=== PATIENT | female | born 1985 ===

== ENCOUNTER 2017-08-28 10:57 | Emergency (ER) | payer SELFPAY ==
[2017-08-28 10:57] VITALS: BMI 25.3
[2017-08-28 11:10] VITALS: BP 123/76; PULSE 96; RESP 16; O2SAT 98
[2017-08-28 11:23] VITALS: TEMP 98
--- NOTE | 2017-08-28 11:46 | ED PDOC ---
HPI: CCC, URI, Sore Throat Time Seen by Provider: 08/28/17 11:01 Chief Complaint (Nursing): Cough, Cold, Congestion Chief Complaint (Provider): URI History Per: Patient Additional Complaint(s): 32 yo female, no PMH, presents with cough, congestion, runny nose, tactile fever , and sinus pressure. Symptoms started on wednesday and feels worse today. Patient took motrin yesterday with no relief. Past Medical History Reviewed: Nursing Documentation, Vital Signs Vital Signs: Last Vital Signs Temp 98 F 08/28/17 11:16 Pulse 96 H 08/28/17 11:16 Resp 16 08/28/17 11:16 BP 123/76 08/28/17 11:16 Pulse Ox 98 08/28/17 11:46 - Medical History PMH: No Chronic Diseases Denies: Chronic Kidney Disease - Surgical History Surgical History: No Surg Hx - Family History Family History: States: No Known Family Hx - Living Arrangements Living Arrangements: With Family - Social History Current smoker - smoking cessation education provided: No Alcohol: None Drugs: Denies - Home Medications Home Medications: Ambulatory Orders Medication Instructions Recorded Naproxen [Naprosyn] 500 mg PO PRN PRN 05/12/16 Methylprednisolone [Medrol Dose 4 mg PO DAILY #21 mg 08/28/17 Pack (21 tabs)] Promethazine HCl/Codeine 5 ml PO HS #80 ml 08/28/17 [Prometh-Codein 6.25-10 mg/5 ml] - Allergies Allergies/Adverse Reactions: Allergies Allergy/AdvReac Type Severity Reaction Status Date / Time tetracycline Allergy RASH Verified 08/28/17 11:20 Review of Systems ROS Statement: Except As Marked, All Systems Reviewed And Found Negative Constitutional: Positive for: Fever ENT: Positive for: Nose Congestion, Throat Pain Respiratory: Positive for: Cough Physical Exam - Reviewed Nursing Documentation Reviewed: Yes Vital Signs Reviewed: Yes - Physical Exam Appears: Positive for: Well, Non-toxic, No Acute Distress Head Exam: Positive for: ATRAUMATIC, NORMAL INSPECTION, NORMOCEPHALIC Skin: Positive for: Normal Color, Warm, DRY Eye Exam: Positive for: EOMI, Normal appearance, PERRL ENT: Positive for: TM Is/Are (WNL), Pharyngeal Erythema. Negative for: Tonsillar Exudate, Tonsillar Swelling Neck: Positive for: Normal, Painless ROM Cardiovascular/Chest: Positive for: Regular Rate, Rhythm Respiratory: Positive for: CNT, Normal Breath Sounds Gastrointestinal/Abdominal: Positive for: Normal Exam, Bowel Sounds, Soft Back: Positive for: Normal Inspection Extremity: Positive for: Normal ROM Neurologic/Psych: Positive for: Alert, Oriented - ECG O2 Sat by Pulse Oximetry: 98 Medical Decision Making Medical Decision Making: CXR: NAD, as read by GIRISH Flu and Strep (-) Pt educated on results and demonstrated full understanding Supportive care measures discussed. Disposition - Clinical Impression Clinical Impression: Upper respiratory infection - Patient ED Disposition Is Patient to be Admitted: No - Disposition Disposition: Routine/Home Disposition Time: 12:48 Condition: STABLE Prescriptions: Methylprednisolone [Medrol Dose Pack (21 tabs)] 4 mg PO DAILY #21 mg Promethazine HCl/Codeine [Prometh-Codein 6.25-10 mg/5 ml] 5 ml PO HS #80 ml Instructions: Upper Respiratory Infection (ED) Forms: [facility] ([place])
--- NOTE | 2017-08-28 12:47 | RAD ---
HISTORY: Fever and cough. COMPARISON: No prior. TECHNIQUE: Chest PA and lateral FINDINGS: LUNGS: No acute infiltrates. There is a vague approximately 3.77 mm rounded radiopaque left lateral mid to lower lung field located between the left anterior 4th and 5th ribs near the pleural surface that may represent a small calcified granuloma. Followup nonemergent CT scan of the chest could be performed confirm PLEURA: No significant pleural effusion identified. No pneumothorax apparent. CARDIOVASCULAR: Normal. OSSEOUS STRUCTURES: No significant abnormalities. VISUALIZED UPPER ABDOMEN: Normal. OTHER FINDINGS: None. IMPRESSION: No acute infiltrates. There is a vague approximately 3.77 mm rounded radiopaque left lateral mid to lower lung field located between the left anterior 4th and 5th ribs near the pleural surface that may represent a small calcified granuloma. Followup nonemergent CT scan of the chest could be performed confirm and exclude other pathology
== END 2017-08-28 13:30 | disposition home or self-care (01) ==
LOC: H.ER 10:57
DX: J06.9 Acute upper respiratory infection, unspecified (principal)

== ENCOUNTER 2017-08-29 21:37 | Emergency (ER) | payer SELFPAY ==
[2017-08-29 21:38] VITALS: BMI 25.3
[2017-08-29 21:56] VITALS: BP 145/79
[2017-08-29] MEDS ORDERED: Sodium Chloride 0.9% 1,000 ML IV STA (22:16)
[2017-08-29 22:49] LABS: BASO % 0.2 % (0.0-2.0); EOS % 0.1 % (0.0-4.0); HEMOGLOBIN 11.1 g/dL (12.0-16.0); LYMPH # 0.8 K/uL (1.0-4.3); LYMPH % 12.3 % (20.0-40.0); MEAN CELL VOLUME 81.6 fl (81.0-99.0); MEAN CORPUSCULAR HEMOGLOBIN 26.9 pg (27.0-31.0); MEAN CORPUSCULAR HGB CONC 32.9 g/dL (33.0-37.0); MEAN PLATELET VOLUME 8.5 fl (7.2-11.7); MONO # 0.5 K/uL (0.0-0.8); MONO % 7.4 % (0.0-10.0); NEUT # 5.3 K/uL (1.8-7.0); NRBC % 0.2 % (0.0-0.0); RBC 4.15 Mil/uL (3.80-5.20); RED CELL DISTRIBUTION WIDTH 14.6 % (11.5-14.5); WHITE BLOOD COUNT 6.6 K/uL (4.8-10.8)
[2017-08-29 23:02] LABS: ALB/GLOB RATIO 1.2 (1.0-2.1); ALBUMIN 4.3 g/dL (3.5-5.0); ALT/SGPT 24 U/L (9-52); AST/SGOT 25 U/L (14-36); BLOOD UREA NITROGEN 7 mg/dl (7-17); CALCIUM 9.6 mg/dL (8.4-10.2); GFR AFRICAN-AMERICAN > 60; GFR NON-AFRICAN AMERICAN > 60
--- NOTE | 2017-08-30 00:28 | ED PDOC ---
HPI: General Adult Time Seen by Provider: 08/29/17 22:10 Chief Complaint (Nursing): Palpitations Chief Complaint (Provider): Palpitations, SOB History Per: Patient History/Exam Limitations: no limitations Onset/Duration Of Symptoms: Mins Have you had recent travel within the past 21 days to any of the following countries: [place], [place], [place] or [place]?: No Current Symptoms Are (Timing): Still Present Additional Complaint(s): 32 yo female with no medical problems presents with palpitations and SOB. PT was see in ER 2 days ago and diagnosed with bronchitis. Pt began taking prednisone this morning. Pt states she has never felt this way before. Pt reports some improvement on arrival to room. Past Medical History Reviewed: Historical Data, Nursing Documentation, Vital Signs Vital Signs: Last Vital Signs Temp 98.6 F 08/29/17 21:51 Pulse 102 H 08/29/17 22:18 Resp 20 08/29/17 21:51 BP 145/79 08/29/17 21:51 Pulse Ox 99 08/30/17 00:29 - Medical History PMH: No Chronic Diseases Denies: Chronic Kidney Disease - Surgical History Surgical History: No Surg Hx - Family History Family History: States: No Known Family Hx - Living Arrangements Living Arrangements: With Family - Social History Current smoker - smoking cessation education provided: No - Home Medications Home Medications: Ambulatory Orders Medication Instructions Recorded Naproxen [Naprosyn] 500 mg PO PRN PRN 05/12/16 Methylprednisolone [Medrol Dose 4 mg PO DAILY #21 mg 08/28/17 Pack (21 tabs)] Promethazine HCl/Codeine 5 ml PO HS #80 ml 08/28/17 [Prometh-Codein 6.25-10 mg/5 ml] - Allergies Allergies/Adverse Reactions: Allergies Allergy/AdvReac Type Severity Reaction Status Date / Time tetracycline Allergy RASH Verified 08/28/17 11:20 Review of Systems ROS Statement: Except As Marked, All Systems Reviewed And Found Negative Constitutional: Negative for: Fever, Chills Cardiovascular: Positive for: Palpitations. Negative for: Chest Pain Respiratory: Positive for: Shortness of Breath. Negative for: Cough Physical Exam - Reviewed Nursing Documentation Reviewed: Yes Vital Signs Reviewed: Yes - Physical Exam Appears: Positive for: Well, Non-toxic, No Acute Distress Head Exam: Positive for: ATRAUMATIC, NORMAL INSPECTION, NORMOCEPHALIC Skin: Positive for: Normal Color, Warm, DRY Eye Exam: Positive for: Normal appearance ENT: Positive for: Normal ENT Inspection Neck: Positive for: Normal, Painless ROM Cardiovascular/Chest: Positive for: Regular Rate, Rhythm Respiratory: Positive for: Normal Breath Sounds. Negative for: Accessory Muscle Use, Respiratory Distress Back: Positive for: Normal Inspection Extremity: Positive for: Normal ROM. Negative for: Tenderness Neurologic/Psych: Positive for: Alert, Oriented - Laboratory Results Result Diagrams: 08/29/17 22:45 08/29/17 22:45 - ECG O2 Sat by Pulse Oximetry: 99 Medical Decision Making Medical Decision Making: Labs normal with the exception of DDimer which is elevated. CT (-) Case discussed with Dr. Jefferson. Disposition - Clinical Impression Clinical Impression: Palpitations - Patient ED Disposition Is Patient to be Admitted: No Counseled Patient/Family Regarding: Diagnosis, Need For Followup - Disposition Referrals: Orlando Eng MD [Staff Provider] - Disposition: Routine/Home Disposition Time: 02:32 Condition: STABLE Additional Instructions: Please follow-up with purchasing manager/sales. Instructions: Palpitations (ED) Forms: [employer] (Latvian) Print Language: SOMALI
[2017-08-30] MEDS ORDERED: Iodixanol 320 MG/ML 100 ML BOTTLE IV ONE (01:06)
[2017-08-30] MEDS ORDERED: Sodium Chloride 0.9% 50 ML IV ONE (01:06)
--- NOTE | 2017-08-30 02:08 | CT ---
EXAM: CT Angiography Chest With Intravenous Contrast CLINICAL HISTORY: 32 years old, female; Signs and symptoms; Shortness of breath; Additional info: Tachycardia, SOB TECHNIQUE: Axial computed tomographic angiography images of the chest with intravenous contrast using pulmonary embolism protocol. All CT scans at this facility use one or more dose reduction techniques, viz.: automated exposure control; ma/kV adjustment per patient size (including targeted exams where dose is matched to indication; i.e. head); or iterative reconstruction technique. MIP reconstructed images were created and reviewed. Coronal and sagittal reformatted images were created and reviewed. CONTRAST: 90 mL of [id number] administered intravenously. COMPARISON: CT - CHEST W/O CONTRAST 2015-11-29 09:02 FINDINGS: Pulmonary arteries: No pulmonary embolism. Aorta: No aneurysm. No dissection. Lungs: No consolidation. Several pulmonary nodules, up to 0.6 cm, stable. Pleural space: No significant effusion. No pneumothorax. Heart: No cardiomegaly. No significant pericardial effusion. Bones/joints: No acute fracture. Soft tissues: Unremarkable. Lymph nodes: No pathologically enlarged lymph nodes. IMPRESSION: 1. No CT evidence of pulmonary embolism. 2. Pulmonary nodules, stable.
[2017-08-30 02:31] VITALS: PULSE 108; RESP 16; TEMP 98.3
[2017-08-30 02:33] VITALS: O2SAT 99
--- NOTE | 2017-08-30 13:36 | CARD ---
APPROVED REPORT EKG Measurement Heart [id number] <Conclusion> Sinus tachycardia Non-specific ST-T changes Abnormal ECG
== END 2017-08-30 02:40 | disposition home or self-care (01) ==
LOC: H.ER 21:37
DX: R00.2 Palpitations (principal); R06.02 Shortness of breath
CPT/HCPCS: 71275; 80053; 81025; 84443; 85025; 85378; 93005; 96360; 99283; J7040; Q9967

== ENCOUNTER 2017-12-27 06:45 | Observation (INO) | payer OTHER, SELFPAY ==
[2017-12-27 06:45] VITALS: BMI 25.3
--- NOTE | 2017-12-27 07:35 | ED PDOC ---
HPI: General Adult Time Seen by Provider: 12/27/17 07:08 Chief Complaint (Nursing): Palpitations Chief Complaint (Provider): Palpitations History Per: Patient History/Exam Limitations: no limitations Onset/Duration Of Symptoms: Days (x 3) Current Symptoms Are (Timing): Still Present Recently: Treated By A Physician Additional Complaint(s): 32-year-old female presents to ED complaining of palpitations x 3 days intermittent associated with episodes of chest pain and dizziness. (-) shortness of breath. Pt states she had similar symptoms in past. Seen by PMD with work up inconclusive. PMD: Prashanth Panchal Past Medical History Reviewed: Historical Data, Nursing Documentation, Vital Signs Vital Signs: Last Vital Signs Temp 97.8 F 12/27/17 06:56 Pulse 95 H 12/27/17 08:50 Resp 16 12/27/17 06:56 BP 127/78 12/27/17 06:56 Pulse Ox 98 12/27/17 08:50 - Medical History PMH: No Chronic Diseases Denies: Chronic Kidney Disease - Surgical History Surgical History: No Surg Hx - Family History Family History: States: Unknown Family Hx - Home Medications Home Medications: Ambulatory Orders Medication Instructions Recorded Naproxen [Naprosyn] 500 mg PO PRN PRN 05/12/16 Methylprednisolone [Medrol Dose 4 mg PO DAILY #21 mg 08/28/17 Pack (21 tabs)] Promethazine HCl/Codeine 5 ml PO HS #80 ml 08/28/17 [Prometh-Codein 6.25-10 mg/5 ml] Non-Formulary 1 ea .ROUTE Q6 #1 ea 12/27/17 Non-Formulary 1 ea .ROUTE Q6 #1 ea 12/27/17 - Allergies Allergies/Adverse Reactions: Allergies Allergy/AdvReac Type Severity Reaction Status Date / Time tetracycline Allergy RASH Verified 08/28/17 11:20 Review of Systems ROS Statement: Except As Marked, All Systems Reviewed And Found Negative Cardiovascular: Positive for: Palpitations Respiratory: Negative for: Shortness of Breath Neurological: Positive for: Dizziness Physical Exam - Reviewed Nursing Documentation Reviewed: Yes Vital Signs Reviewed: Yes - Physical Exam Cardiovascular/Chest: Positive for: Regular Rate, Rhythm. Negative for: Murmur Respiratory: Positive for: Normal Breath Sounds (Lungs clear b/l) Gastrointestinal/Abdominal: Positive for: Normal Exam, Soft. Negative for: Tenderness Extremity: Negative for: Calf Tenderness, Swelling Neurologic/Psych: Positive for: Alert, Oriented (x 3). Negative for: Motor/ Sensory Deficits - Laboratory Results Result Diagrams: 12/27/17 07:50 12/27/17 07:50 - ECG ECG: Positive for: Interpreted By Me, Viewed By Me ECG Rhythm: Positive for: Sinus Rhythm (Normal). Negative for: ST/T Changes Rate: 95 O2 Sat by Pulse Oximetry: 98 (RA) Pulse Ox Interpretation: Normal Medical Decision Making Medical Decision Making: Time: 07:29 Plan: - EKG - cmp - drug screen, urine - t4 - tsh - troponin I - ed urine - cbc (with differentials) - d-dimer - CXR Time: 07:51 - Urine Culture Scribe Attestation: Documented by Archie Maldonado, acting as a scribe for Keith Fitch MD. Provider Scribe Attestation: All medical record entries made by the Scribe were at my direction and personally dictated by me. I have reviewed the chart and agree that the record accurately reflects my personal performance of the history, physical exam, medical decision making, and the department course for this patient. I have also personally directed, reviewed, and agree with the discharge instructions and disposition. Disposition - Clinical Impression Clinical Impression: Palpitations - Patient ED Disposition Is Patient to be Admitted: No Counseled Patient/Family Regarding: Studies Performed, Diagnosis, Need For Followup, Rx Given - Disposition Referrals: [facility] [Outside] Disposition: Routine/Home Disposition Time: 08:32 Condition: FAIR Prescriptions: Non-Formulary 1 ea .ROUTE Q6 #1 ea Non-Formulary 1 ea .ROUTE Q6 #1 ea Instructions: Palpitations Forms: [employer] (Nepali)
[2017-12-27 07:55] LABS: BASO # 0.1 K/uL (0.0-0.2); BASO % 0.9 % (0.0-2.0); EOS # 0.1 K/uL (0.0-0.7); EOS % 1.1 % (0.0-4.0); HEMOGLOBIN 12.2 g/dL (12.0-16.0); LYMPH # 1.4 K/uL (1.0-4.3); LYMPH % 23.7 % (20.0-40.0); MEAN CELL VOLUME 83.9 fl (81.0-99.0); MEAN CORPUSCULAR HEMOGLOBIN 27.7 pg (27.0-31.0); MEAN CORPUSCULAR HGB CONC 33.1 g/dL (33.0-37.0); MEAN PLATELET VOLUME 7.6 fl (7.2-11.7); MONO # 0.4 K/uL (0.0-0.8); MONO % 7.1 % (0.0-10.0); NEUT % 67.2 % (50.0-75.0); NRBC % 0.1 % (0.0-0.0); RBC 4.41 Mil/uL (3.80-5.20); RED CELL DISTRIBUTION WIDTH 13.1 % (11.5-14.5); WHITE BLOOD COUNT 5.9 K/uL (4.8-10.8)
[2017-12-27 08:17] LABS: ALB/GLOB RATIO 1.2 (1.0-2.1); ALBUMIN 4.3 g/dL (3.5-5.0); ALT/SGPT 35 U/L (9-52); AST/SGOT 25 U/L (14-36); BLOOD UREA NITROGEN 9 mg/dl (7-17); CALCIUM 9.4 mg/dL (8.4-10.2); GFR AFRICAN-AMERICAN > 60; GFR NON-AFRICAN AMERICAN > 60
[2017-12-27 08:30] LABS: T4 7.55 ug/dl (5.5-11.0)
--- NOTE | 2017-12-27 09:30 | RAD ---
HISTORY: palpitations COMPARISON: Chest radiographs 08/28/2017. TECHNIQUE: Chest PA and lateral FINDINGS: LUNGS: No active pulmonary disease. PLEURA: No significant pleural effusion identified. No pneumothorax apparent. CARDIOVASCULAR: Normal. OSSEOUS STRUCTURES: No significant abnormalities. VISUALIZED UPPER ABDOMEN: Normal. OTHER FINDINGS: None. IMPRESSION: No interval acute cardiopulmonary disease appreciated.
[2017-12-27 13:35] LABS: BARBITURATES, UR NEGATIVE (NEGATIVE); BENZODIAZEPINES, UR NEGATIVE (NEGATIVE); OPIATES, UR NEGATIVE (NEGATIVE); PHENCYCLIDINE, UR NEGATIVE (NEGATIVE)
--- NOTE | 2017-12-27 15:30 | CP.PCM.HP ---
History of Present Illness - History of Present Illness History of Present Illness: CC: Palpations HPI: 32 YO Female with hx of episodic palpitations presents to [facility] ED for palpitations. Pt states that her palpitations started Wednesday, lasted 10 mins Wednesday and spontaneously resolved, subsequent episodes on Wednesday (20 mins), Wednesday (10mins) and pt woke up this morning with palpitations, lasted 20+ mins which brought her to the hospital. Associated symptoms include chest pain, dizziness, nausea and bi-temporal headache. Pt states that the headache starts with the irregular heart beat, and its described as "tight band around her head ". Additionally, pt states that she feels a sharp pain in the middle of her chest, pain resolves after heart rate slows down. Lastly, pt also endorsing dizziness associated with the arrhythmia. No syncope, no episode of emesis. No recent emotional stress or trauma, pt is happy. Pt took ASA this AM after she woke up. Of note; pt has had similar episodes of palpitations in the past; first seen in 2002, was evaluated by Dr. James, had a loop recorder, neg findings, no PO meds started. Next episode was in 2014, pt was evaluated by Cardiology again, workup was neg per pt. PMD: [facility], Dr. Panchal PMH: denies SurgH: denies (Ovarin cyst resection per chart 2013) SH: , denies ETOH, smoking and illicit drug use OB/GynHx: Normal periods, every month-LMP 12/07/17. G0 FH: DM and HTN. Similar palpitations in a cousin (not in any treatment) and conduction problem in younger brother has a pacemaker Meds: ASA x 3 days Allergies: tetracycline-- angioedema Travel: no recent travel in past 3 months ED course: Vitals: T99.3, HR87, O2 100 RA, RR18, BP115/83 Labs: CBC 5.9>12.2/37<244; CMP 140/3.9, 102/30, 9/0.4, 93 Trop x 1 neg; D-dimer 172; TSH 4.96 +T4 7.55 UDS: neg Upreg: neg EKG: normal sinus with a rate of 97, QTc 344 Chest x-ray: no acute cardiopulmonary disease Initial EKG was noted to be wnl, pt was on residential monitor, sig finding of SVTs with rate of 160. Pt was evaluated and Adenosine was ordered. Arrhythmia spontaneously resolved before adenosine was administered. Present on Admission - Present on Admission Any Indicators Present on Admission: No Review of Systems - Constitutional Constitutional: Headache - EENT Eyes: absent: Change in Vision - Cardiovascular Cardiovascular: Chest Pain, Palpitations. absent: Dyspnea - Respiratory Respiratory: absent: Cough, Dyspnea - Gastrointestinal Gastrointestinal: absent: Abdominal Pain - Genitourinary Genitourinary: absent: Difficulty Urinating, Dysuria - Neurological Neurological: Dizziness, Headaches Past Patient History - Past Medical History & Family History Past Medical History?: No - Past Social History Smoking Status: Never Smoked Alcohol: None Drugs: Denies Home Situation {Lives}: With Family - CARDIAC Hx Cardiac Disorders: No Other/Comment: PALPITATION - PULMONARY Hx Respiratory Disorders: No - NEUROLOGICAL Hx Neurological Disorder: No - HEENT Hx HEENT Problems: No - RENAL Hx Chronic Kidney Disease: No - ENDOCRINE/METABOLIC Hx Endocrine Disorders: No - HEMATOLOGICAL/ONCOLOGICAL Hx Blood Disorders: No - INTEGUMENTARY Hx Dermatological Problems: No - MUSCULOSKELETAL/RHEUMATOLOGICAL Hx Musculoskeletal Disorders: No - GASTROINTESTINAL Hx Gastrointestinal Disorders: No - GENITOURINARY/GYNECOLOGICAL Hx Genitourinary Disorders: No - PSYCHIATRIC Hx Psychophysiologic Disorder: No Hx Emotional Abuse: No Hx Physical Abuse: No Hx Substance Use: No Other/Comment: WHEN NERVOUS-HX OF PALPITATION - SURGICAL HISTORY Hx Surgeries: Yes Other/Comment: OVARIAN CYSTECTOMY - ANESTHESIA Hx Anesthesia: Yes Hx Anesthesia Reactions: No Hx Malignant Hyperthermia: No Meds Allergies/Adverse Reactions: Allergies Allergy/AdvReac Type Severity Reaction Status Date / Time tetracycline Allergy RASH Verified 08/28/17 11:20 Physical Exam - Constitutional Appears: No Acute Distress - Head Exam Head Exam: ATRAUMATIC, NORMAL INSPECTION - Eye Exam Eye Exam: EOMI, Normal appearance, PERRL - ENT Exam ENT Exam: Mucous Membranes Moist - Neck Exam Neck exam: Positive for: Full Rom - Respiratory Exam Respiratory Exam: Clear to Auscultation Bilateral, NORMAL BREATHING PATTERN. absent: Rhonchi, Wheezes - Cardiovascular Exam Cardiovascular Exam: REGULAR RHYTHM, +S1, +S2. absent: Irregular Rhythm, Systolic Murmur - GI/Abdominal Exam GI & Abdominal Exam: Normal Bowel Sounds, Soft. absent: Distended, Tenderness - Extremities Exam Extremities exam: Positive for: full ROM, normal inspection. Negative for: calf tenderness, pedal edema Additional comments: Strength 5/5 in upper and lower extremities Reflexes appreciated no sensory or motor deficits appreciated in the upper and lower extremities - Back Exam Back exam: NORMAL INSPECTION. absent: CVA tenderness (L), CVA tenderness (R) - Neurological Exam Neurological exam: Alert, CN II-XII Intact, Oriented x3, Reflexes Normal - Psychiatric Exam Psychiatric exam: Normal Affect, Normal Mood - Skin Skin Exam: Dry, Intact, Normal Color, Warm Results - Vital Signs Recent Vital Signs: Last Vital Signs Temp 99.3 F 12/27/17 13:49 Pulse 87 12/27/17 13:49 Resp 18 12/27/17 13:49 BP 115/83 12/27/17 13:49 Pulse Ox 100 12/27/17 13:49 - Labs Result Diagrams: 12/27/17 07:50 12/27/17 07:50 Labs: Laboratory Results - last 24 hr 12/27/17 12/27/17 12/27/17 07:38 07:50 07:50 WBC 5.9 RBC 4.41 Hgb 12.2 Hct 37.0 MCV 83.9 D MCH 27.7 MCHC 33.1 RDW 13.1 Plt Count 244 MPV 7.6 Neut % (Auto) 67.2 Lymph % (Auto) 23.7 [place] % (Auto) 7.1 Eos % (Auto) 1.1 Baso % (Auto) 0.9 Neut # (Auto) 4.0 Lymph # (Auto) 1.4 [place] # (Auto) 0.4 Eos # (Auto) 0.1 Baso # (Auto) 0.1 D-Dimer, Quantitative Sodium 140 Potassium 3.9 Chloride 102 Carbon Dioxide 30 Anion Gap 12 BUN 9 Creatinine 0.4 L Est GFR ( Amer) > 60 Est GFR (Non-Af Amer) > 60 Random Glucose 93 Calcium 9.4 Total Bilirubin 0.6 AST 25 ALT 35 Alkaline Phosphatase 41 Troponin I < 0.0120 Total Protein 7.9 Albumin 4.3 Globulin 3.6 Albumin/Globulin Ratio 1.2 Thyroxine (T4) 7.55 TSH 3rd Generation 4.96 H Urine Opiates Screen Negative Urine Methadone Screen Negative Ur Barbiturates Screen Negative Ur Phencyclidine Scrn Negative Ur Amphetamines Screen Negative U Benzodiazepines Scrn Negative U Oth Cocaine Metabols Negative U Cannabinoids Screen Negative 12/27/17 07:50 WBC RBC Hgb Hct MCV MCH MCHC RDW Plt Count MPV Neut % (Auto) Lymph % (Auto) [place] % (Auto) Eos % (Auto) Baso % (Auto) Neut # (Auto) Lymph # (Auto) [place] # (Auto) Eos # (Auto) Baso # (Auto) D-Dimer, Quantitative 172 Sodium Potassium Chloride Carbon Dioxide Anion Gap BUN Creatinine Est GFR ( Amer) Est GFR (Non-Af Amer) Random Glucose Calcium Total Bilirubin AST ALT Alkaline Phosphatase Troponin I Total Protein Albumin Globulin Albumin/Globulin Ratio Thyroxine (T4) TSH 3rd Generation Urine Opiates Screen Urine Methadone Screen Ur Barbiturates Screen Ur Phencyclidine Scrn Ur Amphetamines Screen U Benzodiazepines Scrn U Oth Cocaine Metabols U Cannabinoids Screen Assessment & Plan - Assessment and Plan (Free Text) Assessment: Assessment/Plan: 32 YO female with PMHx of episodic palpitations is admitted for episodic supraventricular tachycardia. Supraventricular tachycardia -SVT resolved spontaneously -admit pt to telemetry -symptomatic SVT -Trop x 1 neg -D-dimer neg -UDS neg -Pt currently NSR -cardiology consulted; follow up recs -Echo pending -continue to monitor cardiovascular status Subclinical Hypothyroidism -TSH 4.96 (H) -T4 7.55 wnl -will continue to monitor DVT propx -Ambulatory -Lovenox SC daily
[2017-12-28 00:08] VITALS: RESP 18
[2017-12-28 05:52] LABS: BLOOD UREA NITROGEN 14 mg/dl (7-17); CALCIUM 9.4 mg/dL (8.4-10.2); GFR AFRICAN-AMERICAN > 60; GFR NON-AFRICAN AMERICAN > 60
[2017-12-28] MEDS ORDERED: Enoxaparin 40 mg Syringe SC SCH (09:00)
--- NOTE | 2017-12-28 09:32 | CARD ---
APPROVED REPORT EKG Measurement Heart [id number] <Conclusion> Normal sinus rhythm Possible Left atrial enlargement Nonspecific T wave abnormality Abnormal ECG
--- NOTE | 2017-12-28 10:03 | CARD ---
APPROVED REPORT EKG Measurement Heart [id number] <Conclusion> Sinus tachycardia Nonspecific T wave abnormality Abnormal ECG
--- NOTE | 2017-12-28 10:09 | CARD ---
APPROVED REPORT EXAM: Two-dimensional and M-mode echocardiogram with Doppler and color Doppler. Other Information Quality : GoodRhythm : NSR INDICATION Abnormal EKG/Arrhythmia 2D DIMENSIONS IVSd0.58 (0.7-1.1cm)LVDd3.86 (3.9-5.9cm) LVOT Diameter1.88 (1.8-2.4cm)PWd1.03 (0.7-1.1cm) IVSs1.15 (0.8-1.2cm)LVDs2.60 (2.5-4.0cm) FS (%) 32.8 %PWs1.25 (0.8-1.2cm) M-Mode DIMENSIONS Left Atrium (MM)2.23 (2.5-4.0cm)IVSd0.95 (0.7-1.1cm) Aortic Root2.54 (2.2-3.7cm)LVDd3.64 (4.0-5.6cm) Aortic Cusp Exc.2.18 (1.5-2.0cm)PWd0.68 (0.7-1.1cm) IVSs1.10 cmFS (%) 35 % LVDs2.38 (2.0-3.8cm)PWs1.24 cm Mitral Valve MV E Vqregbkg82.1cm/sMV DECEL [id number] A Bhkxftjz04.2cm/s MV GVE08qkA/A ratio1.2MVA (PHT)3.59cm2 TDI E/Lateral E'0.0E/Medial E'0.0 Pulmonary Valve PV Peak Yehiaatq991.0cm/s LEFT VENTRICLE The left ventricle is normal size. There is normal left ventricular wall thickness. The left ventricular function is normal. The left ventricular ejection fraction is 65-70% There is normal LV segmental wall motion. The left ventricular diastolic function is normal. No left ventricle thrombus noted on this study. There is no ventricular septal defect visualized. There is no left ventricular aneurysm. There is no mass noted in the left ventricle. RIGHT VENTRICLE The right ventricle is normal size. There is normal right ventricular wall thickness. The right ventricular systolic function is normal. ATRIA The left atrium size is normal. The right atrium size is normal. The interatrial septum is intact with no evidence for an atrial septal defect. AORTIC VALVE The aortic valve is normal in structure. No aortic regurgitation is present. There is no aortic valvular stenosis. There is no aortic valvular vegetation. MITRAL VALVE The mitral valve is normal in structure. There is no evidence of mitral valve prolapse. There is no mitral valve stenosis. Mitral regurgitation is trace. TRICUSPID VALVE The tricuspid valve is normal in structure. There is no tricuspid valve regurgitation noted. There is no tricuspid valve prolapse or vegetation. There is no tricuspid valve stenosis. PULMONIC VALVE The pulmonary valve is normal in structure. There is no pulmonic valvular regurgitation. There is no pulmonic valvular stenosis. GREAT VESSELS The aortic root is normal in size. The ascending aorta is normal in size. The IVC is normal in size and collapses >50% with inspiration. PERICARDIAL EFFUSION The pericardium appears normal. There is no pleural effusion. <Conclusion> Normal LV Systolic Function Trace Mitral Regurgitation
--- NOTE | 2017-12-28 10:38 | CP.PCM.PN ---
Subjective - Date & Time of Evaluation Date of Evaluation: 12/28/17 Time of Evaluation: 10:34 - Subjective Subjective: Overnight pt experienced another episode of irregular heart beat, the episode resolved before pt could be evaluated by MD. This AM, pt states that she is feeling well now, had palpitations this morning which woke her up. Had some dizziness, and chest discomfort but resolved after episode. Currently asymptomatic. Objective - Vital Signs/Intake and Output Vital Signs (last 24 hours): Temp Pulse Resp BP Pulse Ox 98.6 F 90 18 114/71 97 12/28/17 08:21 12/28/17 08:21 12/28/17 08:21 12/28/17 08:21 12/28/17 08:21 - Medications Medications: Current Medications Acetaminophen (Tylenol 325mg Tab) 650 mg PO Q6 PRN PRN Reason: Pain, Mild (1-3) Enoxaparin Sodium (Lovenox) 40 mg SC DAILY MARISEL PRN Reason: Protocol Last Admin: 12/28/17 09:25 Dose: 40 mg - Labs Labs: 12/27/17 07:50 12/28/17 04:20 - Constitutional Appears: No Acute Distress - Head Exam Head Exam: ATRAUMATIC - Eye Exam Eye Exam: EOMI, Normal appearance - ENT Exam ENT Exam: Mucous Membranes Moist - Respiratory Exam Respiratory Exam: Clear to Ausculation Bilateral, NORMAL BREATHING PATTERN. absent: Rhonchi, Wheezes - Cardiovascular Exam Cardiovascular Exam: REGULAR RHYTHM, +S1, +S2 - GI/Abdominal Exam GI & Abdominal Exam: Soft, Normal Bowel Sounds. absent: Tenderness - Extremities Exam Extremities Exam: Full ROM, Normal Inspection. absent: Calf Tenderness, Pedal Edema - Back Exam Back Exam: NORMAL INSPECTION - Neurological Exam Neurological Exam: Alert, Awake, Oriented x3 - Psychiatric Exam Psychiatric exam: Normal Affect, Normal Mood - Skin Skin Exam: Dry, Intact, Normal Color, Warm Assessment and Plan - Assessment and Plan (Free Text) Assessment: Assessment/Plan: 32 YO female with PMHx of episodic palpitations is admitted for episodic supraventricular tachycardia. Supraventricular tachycardia -SVT resolved spontaneously, additional ep this AM -continue to monitor in telemetry -symptomatic SVT -Trop x 2 neg -D-dimer neg -UDS neg -Pt currently NSR -EKG x 2: NSR with normal QTc, Nonspecific T wave changes -cardiology consulted; pt seen by Dr. Daniels this AM. Pending recs. -Echo normal LV systolic function, EF65-70%, trace mitral regurg. -continue to monitor cardiovascular status Subclinical Hypothyroidism -TSH 4.96 (H) -T4 7.55 wnl -will continue to monitor DVT propx -Ambulatory -Lovenox SC daily
--- NOTE | 2017-12-28 11:49 | CP.PCM.CON ---
History of Present Illness - History of Present Illness History of Present Illness: this 32-year-old female came into the hospital complaining of intermittent episodes of palpitations. She has had these episodes going back 2011. She reports that they occur quite unconnected to any physical activity and last anywhere between 5-10 minutes. Occasionally short as half a minute. This spontaneously resolved. They are not accompanied by any sense of lightheadedness of sudden shortness of breath or fainting. She is not a smoker or hypertensive or diabetic. She denies any history of rheumatic fever as a child. At times to record these episodes in the past have been unsuccessful. And no diagnosis has been made. There is no family history of heart disease. Physical examination shows a young female who is alert awake and coherent and quite comfortable at bedrest. She reports having woken up with palpitations at 4 :00 in the morning area review of her telemetry tracings show a sinus rhythm at 120 bpm. No abrupt beginning or end is recorded. A tracing obtained in the emergency room lasting few seconds show a supraventricular tachycardia at 160 bpm which apparently resolved spontaneously without any intervention. Physical examination shows a young female who is quite comfortable at bedrest. Has a heart rate of 70 bpm regular and a blood pressure of 124/74 mmHg. Her jugular venous pressure was not elevated and there was no edema over her lower extremity. Pedal pulses were well felt. Thyroid and breast did not reveal anything abnormal. Her first and second heart sounds are normal no murmur or gallop where appreciated. Lungs were clear. Abdomen was soft and liver and spleen were not palpable. Her electrocardiogram shows sinus rhythm with a normal EKG pattern. Her echocardiogram shows a normal left ventricular systolic function with no significant valvular abnormalities.her lab data was noted. Impression: supraventricular tachycardia. No evidence of structural heart disease. I have discussed this case with the residents and recommended that a low-dose of beta blockade may be given to the patient to resolve symptoms related to this benign arrhythmia with no hemodynamic consequences. Intervention such as EP studies for possible concealed conduction pathway ablation would be undertaken if symptoms such as syncope or near syncope occur. The patient may be allowed to return home to be taken care of as an outpatient Past Patient History - Past Medical History & Family History Past Medical History?: No - Past Social History Smoking Status: Never Smoked Alcohol: None Drugs: Denies Home Situation {Lives}: With Family - CARDIAC Hx Cardiac Disorders: No Other/Comment: PALPITATION - PULMONARY Hx Respiratory Disorders: No - NEUROLOGICAL Hx Neurological Disorder: No - HEENT Hx HEENT Problems: No - RENAL Hx Chronic Kidney Disease: No - ENDOCRINE/METABOLIC Hx Endocrine Disorders: No - HEMATOLOGICAL/ONCOLOGICAL Hx Blood Disorders: No - INTEGUMENTARY Hx Dermatological Problems: No - MUSCULOSKELETAL/RHEUMATOLOGICAL Hx Musculoskeletal Disorders: No - GASTROINTESTINAL Hx Gastrointestinal Disorders: No - GENITOURINARY/GYNECOLOGICAL Hx Genitourinary Disorders: No - PSYCHIATRIC Hx Psychophysiologic Disorder: No Hx Emotional Abuse: No Hx Physical Abuse: No Hx Substance Use: No Other/Comment: WHEN NERVOUS-HX OF PALPITATION - SURGICAL HISTORY Hx Surgeries: Yes Other/Comment: OVARIAN CYSTECTOMY - ANESTHESIA Hx Anesthesia: Yes Hx Anesthesia Reactions: No Hx Malignant Hyperthermia: No Meds Allergies/Adverse Reactions: Allergies Allergy/AdvReac Type Severity Reaction Status Date / Time tetracycline Allergy RASH Verified 08/28/17 11:20 - Medications Medications: Current Medications Acetaminophen (Tylenol 325mg Tab) 650 mg PO Q6 PRN PRN Reason: Pain, Mild (1-3) Enoxaparin Sodium (Lovenox) 40 mg SC DAILY MARISEL PRN Reason: Protocol Last Admin: 12/28/17 09:25 Dose: 40 mg Results - Vital Signs Recent Vital Signs: Last Vital Signs Temp 98.6 F 12/28/17 08:21 Pulse 90 12/28/17 08:21 Resp 18 12/28/17 08:21 BP 114/71 12/28/17 08:21 Pulse Ox 97 12/28/17 08:21 - Labs Result Diagrams: 12/27/17 07:50 12/28/17 04:20 Labs: Laboratory Results - last 24 hr 12/27/17 12/28/17 12/28/17 07:38 04:20 08:58 Sodium 140 Potassium 4.0 Chloride 104 Carbon Dioxide 27 Anion Gap 13 BUN 14 Creatinine 0.5 L Est GFR ( Amer) > 60 Est GFR (Non-Af Amer) > 60 Random Glucose 96 Calcium 9.4 Troponin I < 0.0120 Urine Opiates Screen Negative Urine Methadone Screen Negative Ur Barbiturates Screen Negative Ur Phencyclidine Scrn Negative Ur Amphetamines Screen Negative U Benzodiazepines Scrn Negative U Oth Cocaine Metabols Negative U Cannabinoids Screen Negative
[2017-12-28 12:20] VITALS: BP 102/63; PULSE 81; TEMP 98.8; O2SAT 96
--- NOTE | 2017-12-28 13:47 | CP.PCM.DIS ---
Provider - Provider Date of Admission: 12/27/17 09:29 Attending physician: Alia Soto MD Time Spent in preparation of Discharge (in minutes): 20 Hospital Course - Lab Results Lab Results: Micro Results 12/27/17 08:52 Urine Urine Culture - Final No Growth (<1,000 CFU/ML) Most Recent Lab Values WBC 5.9 K/uL (4.8-10.8) 12/27/17 07:50 RBC 4.41 Mil/uL (3.80-5.20) 12/27/17 07:50 Hgb 12.2 g/dL (12.0-16.0) 12/27/17 07:50 Hct 37.0 % (34.0-47.0) 12/27/17 07:50 MCV 83.9 fl (81.0-99.0) D 12/27/17 07:50 MCH 27.7 pg (27.0-31.0) 12/27/17 07:50 MCHC 33.1 g/dL (33.0-37.0) 12/27/17 07:50 RDW 13.1 % (11.5-14.5) 12/27/17 07:50 Plt Count 244 K/uL (130-400) 12/27/17 07:50 MPV 7.6 fl (7.2-11.7) 12/27/17 07:50 Neut % (Auto) 67.2 % (50.0-75.0) 12/27/17 07:50 Lymph % (Auto) 23.7 % (20.0-40.0) 12/27/17 07:50 Sunflower % (Auto) 7.1 % (0.0-10.0) 12/27/17 07:50 Eos % (Auto) 1.1 % (0.0-4.0) 12/27/17 07:50 Baso % (Auto) 0.9 % (0.0-2.0) 12/27/17 07:50 Neut # (Auto) 4.0 K/uL (1.8-7.0) 12/27/17 07:50 Lymph # (Auto) 1.4 K/uL (1.0-4.3) 12/27/17 07:50 Sunflower # (Auto) 0.4 K/uL (0.0-0.8) 12/27/17 07:50 Eos # (Auto) 0.1 K/uL (0.0-0.7) 12/27/17 07:50 Baso # (Auto) 0.1 K/uL (0.0-0.2) 12/27/17 07:50 D-Dimer, Quantitative 172 ng/mlDDU (0-230) 12/27/17 07:50 Sodium 140 mmol/l (132-148) 12/28/17 04:20 Potassium 4.0 MMOL/L (3.6-5.0) 12/28/17 04:20 Chloride 104 mmol/L (98-107) 12/28/17 04:20 Carbon Dioxide 27 mmol/L (22-30) 12/28/17 04:20 Anion Gap 13 (10-20) 12/28/17 04:20 BUN 14 mg/dl (7-17) 12/28/17 04:20 Creatinine 0.5 mg/dl (0.7-1.2) L 12/28/17 04:20 Est GFR ( Amer) > 60 12/28/17 04:20 Est GFR (Non-Af Amer) > 60 12/28/17 04:20 Random Glucose 96 mg/dL (65-105) 12/28/17 04:20 Calcium 9.4 mg/dL (8.4-10.2) 12/28/17 04:20 Total Bilirubin 0.6 mg/dl (0.2-1.3) 12/27/17 07:50 AST 25 U/L (14-36) 12/27/17 07:50 ALT 35 U/L (9-52) 12/27/17 07:50 Alkaline Phosphatase 41 U/L (38-126) 12/27/17 07:50 Troponin I < 0.0120 ng/mL (0.00-0.120) 12/28/17 08:58 Total Protein 7.9 G/DL (6.3-8.2) 12/27/17 07:50 Albumin 4.3 g/dL (3.5-5.0) 12/27/17 07:50 Globulin 3.6 gm/dL (2.2-3.9) 12/27/17 07:50 Albumin/Globulin Ratio 1.2 (1.0-2.1) 12/27/17 07:50 Thyroxine (T4) 7.55 ug/dl (5.5-11.0) 12/27/17 07:50 TSH 3rd Generation 4.96 mIU/ML (0.46-4.68) H 12/27/17 07:50 Urine Opiates Screen Negative (NEGATIVE) 12/27/17 07:38 Urine Methadone Screen Negative (NEGATIVE) 12/27/17 07:38 Ur Barbiturates Screen Negative (NEGATIVE) 12/27/17 07:38 Ur Phencyclidine Scrn Negative (NEGATIVE) 12/27/17 07:38 Ur Amphetamines Screen Negative (NEGATIVE) 12/27/17 07:38 U Benzodiazepines Scrn Negative (NEGATIVE) 12/27/17 07:38 U Oth Cocaine Metabols Negative (NEGATIVE) 12/27/17 07:38 U Cannabinoids Screen Negative (NEGATIVE) 12/27/17 07:38 - Hospital Course Hospital Course: 32 YO female with PMHx of episodic palpitations is admitted for episodic supraventricular tachycardia. Seen by Dr. Daniels. May be DC'd home on low dose BB with further outpatient follow up with him. Script for Metoprolol 25 mg daily PO x 1 month supply. Supraventricular tachycardia -SVT resolved spontaneously without meds or vagal maneuvers. -EKG x 2: NSR with normal QTc, Nonspecific T wave changes -cardiology consulted; pt seen by Dr. Daniels this AM. Pending recs. -Echo normal LV systolic function, EF65-70%, trace mitral regurg. - stable to DC home today ( see progress note for physical exam) Discharge Exam - Head Exam Head Exam: ATRAUMATIC Discharge Plan - Discharge Medications Prescriptions: Metoprolol Tartrate 25 mg PO DAILY #30 tablet - Follow Up Plan Condition: FAIR Disposition: HOME/ ROUTINE Additional Instructions: follow up with [facility] in 1 week follow up with Cardio Dr. Daniels in 1 week meds transmitted to pharmacy Stable to DC home
== END 2017-12-28 15:45 | disposition home or self-care (01) ==
LOC: H.ER 06:45 → H.ERHOLD 09:29 → H.TEL 17:18
PROVIDERS: ADMIT Family Medicine Geriatric Medicine; ATTEND Family Medicine Geriatric Medicine
DX: I47.1 Supraventricular tachycardia (principal); E02 Subclinical iodine-deficiency hypothyroidism
CPT/HCPCS: 36415; 71046; 80048; 80053; 80324; 80345; 80346; 80349; 80353; 80358; 80361; 81025; 83992; 84436; 84443; 84484; 85025; 85378; 87086; 93005; 93306; 99284; G0378; J1650

== ENCOUNTER 2018-02-26 07:08 | Emergency (ER) | payer BC ==
[2018-02-26 07:20] VITALS: TEMP 99; O2SAT 100
[2018-02-26 07:21] VITALS: BMI 23.5
--- NOTE | 2018-02-26 07:56 | ED PDOC ---
HPI: Chest Pain Time Seen by Provider: 02/26/18 07:40 Chief Complaint (Provider): Palpitations, Chest Pain History Per: Patient History/Exam Limitations: no limitations Onset/Duration Of Symptoms: Days (x2) Current Symptoms Are (Timing): Still Present Additional Complaint(s): 32 year old female with a past medical history of HTN and SVT presenting for evaluation of palpitations associated with intermittent chest pain x2 days. Patient states sypmtoms began yesterday and denies any shortness of breath or dizziness. She reports a similar previous episode in December 2017. Patient was noted at that time to have SVT. Past Medical History Reviewed: Historical Data, Nursing Documentation, Vital Signs Vital Signs: Last Vital Signs Temp 99 F 02/26/18 07:20 Pulse 92 H 02/26/18 09:55 Resp 12 02/26/18 09:55 BP 120/74 02/26/18 09:55 Pulse Ox 100 02/26/18 09:55 - Medical History PMH: HTN Denies: Chronic Kidney Disease Other PMH: Supraventricular tachycardia - Surgical History Surgical History: No Surg Hx - Family History Family History: States: Unknown Family Hx - Home Medications Home Medications: Ambulatory Orders Medication Instructions Recorded Metoprolol Tartrate 25 mg PO DAILY #30 tablet 12/28/17 Non-Formulary 1 ea .ROUTE Q6 #1 ea 02/26/18 Non-Formulary 1 ea .ROUTE Q6 #1 ea 02/26/18 - Allergies Allergies/Adverse Reactions: Allergies Allergy/AdvReac Type Severity Reaction Status Date / Time tetracycline Allergy RASH Verified 08/28/17 11:20 Review of Systems ROS Statement: Except As Marked, All Systems Reviewed And Found Negative Cardiovascular: Positive for: Chest Pain, Palpitations Respiratory: Negative for: Shortness of Breath Neurological: Negative for: Dizziness Physical Exam - Reviewed Nursing Documentation Reviewed: Yes Vital Signs Reviewed: Yes - Physical Exam Appears: Positive for: Non-toxic, No Acute Distress Head Exam: Positive for: ATRAUMATIC, NORMAL INSPECTION, NORMOCEPHALIC Skin: Positive for: Normal Color, Warm, Dry. Negative for: Rash Eye Exam: Positive for: EOMI, Normal appearance, PERRL Neck: Positive for: Normal, Painless ROM, Supple Cardiovascular/Chest: Positive for: Regular Rate, Rhythm. Negative for: Murmur Respiratory: Positive for: Normal Breath Sounds. Negative for: Respiratory Distress Gastrointestinal/Abdominal: Positive for: Normal Exam, Soft. Negative for: Tenderness Back: Positive for: Normal Inspection. Negative for: L CVA Tenderness, R CVA Tenderness, Vertebral Tenderness Extremity: Positive for: Normal ROM. Negative for: Pedal Edema, Deformity Neurologic/Psych: Positive for: Alert, Oriented (x3). Negative for: Motor/ Sensory Deficits - Laboratory Results Result Diagrams: 02/26/18 08:55 02/26/18 08:30 - ECG O2 Sat by Pulse Oximetry: 100 (RA) Pulse Ox Interpretation: Normal Medical Decision Making Medical Decision Makin:49 Plan: -EKG -CMP -Troponin I -Urine -Urine dipstick -CBC w/ differential -CXR -Reevaluation Scribe Attestation: Documented by Elmer Rasheed, acting as a scribe for Keith Fitch MD. Provider Scribe Attestation: All medical record entries made by the Scribe were at my direction and personally dictated by me. I have reviewed the chart and agree that the record accurately reflects my personal performance of the history, physical exam, medical decision making, and the department course for this patient. I have also personally directed, reviewed, and agree with the discharge instructions and disposition. Disposition - Clinical Impression Clinical Impression: Palpitations - Patient ED Disposition Is Patient to be Admitted: No Counseled Patient/Family Regarding: Studies Performed, Diagnosis, Need For Followup, Rx Given - Disposition Referrals: [facility] [Outside] Disposition: Routine/Home Disposition Time: 11:08 Condition: FAIR Prescriptions: Non-Formulary 1 ea .ROUTE Q6 #1 ea Non-Formulary 1 ea .ROUTE Q6 #1 ea Instructions: Palpitations
[2018-02-26 09:34] LABS: BASO # 0.1 K/uL (0.0-0.2); BASO % 0.9 % (0.0-2.0); EOS % 0.6 % (0.0-4.0); HEMOGLOBIN 11.9 g/dL (12.0-16.0); LYMPH # 1.2 K/uL (1.0-4.3); LYMPH % 20.2 % (20.0-40.0); MEAN CELL VOLUME 85.7 fl (81.0-99.0); MEAN CORPUSCULAR HEMOGLOBIN 27.7 pg (27.0-31.0); MEAN CORPUSCULAR HGB CONC 32.3 g/dL (33.0-37.0); MEAN PLATELET VOLUME 8.9 fl (7.2-11.7); MONO # 0.4 K/uL (0.0-0.8); MONO % 6.6 % (0.0-10.0); NEUT # 4.2 K/uL (1.8-7.0); NEUT % 71.7 % (50.0-75.0); RBC 4.32 Mil/uL (3.80-5.20); RED CELL DISTRIBUTION WIDTH 13.5 % (11.5-14.5); WHITE BLOOD COUNT 5.9 K/uL (4.8-10.8)
[2018-02-26 09:37] LABS: ALB/GLOB RATIO 1.4 (1.0-2.1); ALBUMIN 4.6 g/dL (3.5-5.0); ALT/SGPT 27 U/L (9-52); AST/SGOT 26 U/L (14-36); BLOOD UREA NITROGEN 4 mg/dl (7-17); CALCIUM 9.7 mg/dL (8.4-10.2); GFR AFRICAN-AMERICAN > 60; GFR NON-AFRICAN AMERICAN > 60
[2018-02-26 09:55] VITALS: PULSE 92; RESP 12
--- NOTE | 2018-02-26 10:38 | RAD ---
Date of service: 02/26/2018 HISTORY: palpitations COMPARISON: Chest radiograph dated 12/27/2017. TECHNIQUE: Chest PA and lateral FINDINGS: LUNGS: No active pulmonary disease. PLEURA: No significant pleural effusion identified. No pneumothorax apparent. CARDIOVASCULAR: Normal. OSSEOUS STRUCTURES: No significant abnormalities. VISUALIZED UPPER ABDOMEN: Normal. OTHER FINDINGS: None. IMPRESSION: No active disease.
[2018-02-26 11:31] VITALS: BP 122/70
--- NOTE | 2018-02-27 08:58 | CARD ---
APPROVED REPORT Date of service: 02/26/2018 EKG Measurement Heart [id number] <Conclusion> Normal sinus rhythm Normal ECG
== END 2018-02-26 11:30 | disposition home or self-care (01) ==
LOC: H.ER 07:08
DX: R00.2 Palpitations (principal); I10 Essential (primary) hypertension; I47.1 Supraventricular tachycardia